=== PATIENT | female | born 1990 | race Caucasian/White ===

== ENCOUNTER 2017-05-19 09:43 | Emergency (ER) | payer BC, OTHER ==
[~2017-05-19] VITALS: Ht 154.9 cm; Wt 59.0 kg
--- OUTSIDE RECORDS SUMMARY | ~2017-05-19 | XMS ---
Demographics + + + | Address | [address] | | | [address] | | | [place] [address] | + + + | Preferred Language | Unknown | + + + | Marital Status | Unknown | + + + | Yazidism Affiliation | Unknown | + + + | Race | Unknown | + + + | Ethnic Group | Unknown | + + + Author + + + | Author | [facility] | + + + | Organization | [facility] | + + + | Address | [address] | | | [place] [address] | + + + | Phone | | + + + Care Team Providers + + + + | Care Pain Management Physician Name | Role | Phone | + + + + Unavailable | Unavailable | + + + + PROBLEMS +---------+ + + +--------+ + + | Type | Condition | ICD9-CM | [id number] | Onset | Condition | SNOMED | | | | Code | Code | Dates | Status | Code | +---------+ + + +--------+ + + | Problem | Panic | 300.01 | | | Active | [id number] | | | attacks | | | | | | +---------+ + + +--------+ + + | Problem | Torticolli | 723.5 | | | Active | [id number] | | | s, acute | | | | | | +---------+ + + +--------+ + + ALLERGIES Unknown Allergies SOCIAL HISTORY No smoking Hx information available PLAN OF CARE + +---------+ | Activity | Details | + +---------+ +---+ | | +---+ + + + | Pending Test | Hepatitis C Virus Genotype | + + + | Pending Test | Hepatitis C RNA and Quant (R-PCR) | + + + | | ,Reason: | + + + VITAL SIGNS MEDICATIONS Unknown Medications RESULTS No Results PROCEDURES No Known procedures IMMUNIZATIONS No Known Immunizations"
--- OUTSIDE RECORDS SUMMARY | ~2017-05-19 | XMS ---
Demographics + + + | Address | [address] | | | [address] | | | [place] [address] | + + + | Preferred Language | Unknown | + + + | Marital Status | Unknown | + + + | Episcopal Affiliation | Unknown | + + + | Race | Unknown | + + + | Ethnic Group | Unknown | + + + Author + + + | Author | [facility] | + + + | Organization | [facility] | + + + | Address | [address] | | | [place] [address] | + + + | Phone | [phone] | + + + Care Team Providers + + + + | Care Gear Coding Machine Operator Name | Role | Phone | + + + + Unavailable | Unavailable | + + + + PROBLEMS +---------+ + + +--------+ + + | Type | Condition | ICD9-CM | [id number] | Onset | Condition | SNOMED | | | | Code | Code | Dates | Status | Code | +---------+ + + +--------+ + + | Problem | Panic | 300.01 | | | Active | [id number] | | | attacks | | | | | | +---------+ + + +--------+ + + | Problem | Torticolli | 723.5 | | | Active | [id number] | | | s, acute | | | | | | +---------+ + + +--------+ + + ALLERGIES + + + + +--------+ | Substance | Reaction | Event Type | Date | Status | + + + + +--------+ | seasonal | Unknown | Non Drug | Aug, | Active | | | | Allergy | | | + + + + +--------+ SOCIAL HISTORY No smoking Hx information available PLAN OF CARE + +---------+ | Activity | Details | + +---------+ +---+ | | +---+ + + + | Follow Up | prn, 1 Year Reason:null | + + + VITAL SIGNS + + + + | Height | 61 in | 2016-09-04 | + + + + | Weight | 126.5 lbs | 2016-09-04 | + + + + | BMI | 23.90 kg/m2 | 2016-09-04 | + + + + | Heart Rate | 75 /min | 2016-09-04 | + + + + | Blood pressure systolic | 112 mm Hg | 2016-09-04 | + + + + | Blood pressure diastolic | 66 mm Hg | 2016-09-04 | + + + + MEDICATIONS + + + + +--------+ + +--------+ | Medicati | Instruct | Dosage | Frequenc | Start | End Date | Duration | Status | | on | ions | | y | Date | | | | + + + + +--------+ + +--------+ | Chlor-Ta | Orally | 1 tablet | 24h | | | | Active | | blets | daily | as | | | | | | | | | needed | | | | | | + + + + +--------+ + +--------+ | Lamotrig | Orally | 1 | 12h | | | | Active | | ine 150 | bid | tablets | | | | | | | MG | | | | | | | | + + + + +--------+ + +--------+ | Suboxone | orally | 2.5 | 24h | | | | Active | | 20 mg | Once a | tab(s) | | | | | | | | day | | | | | | | + + + + +--------+ + +--------+ | Ortho-Cy | Orally | 1 tablet | 24h | | | | Active | | clen | Once a | | | | | | | | (28) | day | | | | | | | | 0.25-35 | | | | | | | | | MG-MCG | | | | | | | | + + + + +--------+ + +--------+ | Benadryl | Orally | 1 tablet | 8h | | | | Active | | Allergy | every 8 | as | | | | | | | 25 MG | hrs | needed | | | | | | + + + + +--------+ + +--------+ RESULTS No Results PROCEDURES + + + + + | Procedure | Date Ordered | Related Diagnosis | Body Site | + + + + + | Est Level III | September 04, 2016 | | | | Intermediate | | | | + + + + + | DSCHRG MED/CURRENT | September 04, 2016 | | | | MED MERGE | | | | + + + + + | DOC MEDS VERIFIED | September 04, 2016 | | | | W/PT OR RE | | | | + + + + + IMMUNIZATIONS No Known Immunizations"
--- OUTSIDE RECORDS SUMMARY | ~2017-05-19 | XMS ---
Demographics + + + | Address | [address] | | | [address] | | | [place] [address] | + + + | Preferred Language | Unknown | + + + | Marital Status | Unknown | + + + | Latter-Day Affiliation | Unknown | + + + | Race | Unknown | + + + | Ethnic Group | Unknown | + + + Author + + + | Author | [facility] | + + + | Organization | [facility] | + + + | Address | [address] | | | [place] [address] | + + + | Phone | | + + + Care Team Providers + + + + | Care Groundhand Name | Role | Phone | + + + + Unavailable | Unavailable | + + + + PROBLEMS + + + + + + + + | Type | Condition | ICD9-CM | [id number] | Onset | Condition | SNOMED | | | | Code | Code | Dates | Status | Code | + + + + + + + + | Problem | Panic | 300.01 | | | Active | [id number] | | | attacks | | | | | | + + + + + + + + | Problem | Torticolli | 723.5 | | | Active | [id number] | | | s, acute | | | | | | + + + + + + + + | Assessment | HCV | R76.8 | | 14 August, | Active | [id number] | | | antibody | | | 2017 | | | | | positive | | | | | | + + + + + + + + | Assessment | 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 | Unknown | Non Drug | July, | Unknown | | | | Allergy | | | + + + + +---------+ SOCIAL HISTORY No smoking Hx information available PLAN OF CARE + +---------+ | Activity | Details | + +---------+ +---+ | | +---+ + + + | Pending Test | HCV RNA, PCR, Ql (Quant Rflx) | + + + | Pending Test | HCV Genotyping Non Reflex | + + + | Pending Test | Strep Gp A Rapid (IH) | + + + | | prn,Reason: | + + + VITAL SIGNS + + + + | Height | 61 in | 2016-08-14 | + + + + | Weight | 124.5 lbs | 2016-08-14 | + + + + | BMI | 23.52 kg/m2 | 2016-08-14 | + + + + | Temperature | 98.5 degrees Fahrenheit | 2016-08-14 | + + + + | Heart Rate | 83 /min | 2016-08-14 | + + + + | Blood pressure systolic | 122 mm Hg | 2016-08-14 | + + + + | Blood pressure diastolic | 63 mm Hg | 2016-08-14 | + + + + MEDICATIONS + [...] | + + + + + | STREP A ASSAY | August 14, 2016 | | | | W/OPTIC | | | | + + + + + | Est Level III | August 14, 2016 | | | | Intermediate | | | | + + + + + IMMUNIZATIONS No Known Immunizations"
--- OUTSIDE RECORDS SUMMARY | ~2017-05-19 | XMS ---
Demographics + + + | Address | [address] | | | [address] | | | [place] [address] | + + + | Preferred Language | Unknown | + + + | Marital Status | Unknown | + + + | Advent Affiliation | Unknown | + + + | Race | Unknown | + + + | Ethnic Group | Unknown | + + + Author + + + | Author | [facility] | + + + | Organization | [facility] | + + + | Address | [address] | | | [place] [address] | + + + | Phone | | + + + Care Team Providers + + + + | Care Crimper Operator Name | Role | Phone | + + + + Unavailable | Unavailable | + + + + PROBLEMS +---------+ + + +--------+ + + | Type | Condition | ICD9-CM | YOR27-GS | Onset | Condition | SNOMED | | | | Code | Code | Dates | Status | Code | +---------+ + + +--------+ + + | Problem | Panic | 300.01 | | | Active | [id number] | | | attacks | | | | | | +---------+ + + +--------+ + + | Problem | Torticolli | 723.5 | | | Active | [id number] | | | s, acute | | | | | | +---------+ + + +--------+ + + ALLERGIES Unknown Allergies SOCIAL HISTORY No smoking Hx information available PLAN OF CARE VITAL SIGNS MEDICATIONS Unknown Medications RESULTS No Results PROCEDURES No Known procedures IMMUNIZATIONS No Known Immunizations"
--- OUTSIDE RECORDS SUMMARY | ~2017-05-19 | XMS ---
Demographics + + + | Address | [address] | | | [address] | | | [place] [address] | + + + | Preferred Language | Unknown | + + + | Marital Status | Unknown | + + + | Sikhism Affiliation | Unknown | + + + | Race | Unknown | + + + | Ethnic Group | Unknown | + + + Author + + + | Author | [facility] | + + + | Organization | [facility] | + + + | Address | [address] | | | [place] [address] | + + + | Phone | | + + + Care Team Providers + + + + | Care Software Writer Name | Role | Phone | + + + + Unavailable | Unavailable | + + + + PROBLEMS + + + + + + + + | Type | Condition | ICD9-CM | RSR76-JR | Onset | Condition | SNOMED | | | | Code | Code | Dates | Status | Code | + + + + + + + + | Assessment | Encounter | Z13.89 | | 17 Jun, | Active | [id number] | | | for | | | 2017 | | | | | screening | | | | | | | | for other | | | | | | | | disorder | | | | | | + + + + + + + + | Problem | Panic | 300.01 | | | Active | [id number] | | | attacks | | | | | | + + + + + + + + | Problem | Torticolli | 723.5 | | | Active | 87819339 | | | s, acute | | | | | | + + + + + + + + | Assessment | Cervical | Z12.4 | | 17 Apr, | Active | [id number] | | | cancer | | | 2017 | | | | | screening | | | | | | + + + + + + + + | Assessment | 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 | Unknown | Non Drug | Jun, | Unknown | | | | Allergy | | | + + + + +---------+ SOCIAL HISTORY No smoking Hx information available PLAN OF CARE + +---------+ | Activity | Details | + +---------+ +---+ | | +---+ + + + | Pending Test | Comp. Metabolic Panel (14) | + + + | Pending Test | TSH, 3rd Generation | + + + | Pending Test | Hepatitis C Virus Antibody | + + + | Pending Test | CBC | + + + | | prn,Reason: | + + + VITAL SIGNS + + + + | Height | 61 in | 2016-07-07 | + + + + | Weight | 121.6 lbs | 2016-07-07 | + + + + | BMI | 22.97 kg/m2 | 2016-07-07 | + + + + | Heart Rate | 65 /min | 2016-07-07 | + + + + | Blood pressure systolic | 119 mm Hg | 2016-07-07 | + + + + | Blood pressure diastolic | 69 mm Hg | 2016-07-07 | + + + + MEDICATIONS + + +---------+ +--------+ + +--------+ | Medicati | Instruct | Dosage | Frequenc | Start | End Date | Duration | Status | | on | ions | | y | Date | | | | + + +---------+ +--------+ + +--------+ | Suboxone | orally | 2.5 | 24h | | | | Active | | 20 mg | Once a | tab(s) | | | | | | | | day | | | | | | | + + +---------+ +--------+ + +--------+ | Lamotrig | Orally | 1 | | | | | Active | | ine 75 | one time | tablets | | | | | | | mg | daily | | | | | | | | | in am | | | | | | | + + +---------+ +--------+ + +--------+ RESULTS + +--------+ + + | Name | Result | Date | Reference Range | + +--------+ + + | HIV screen | | 2016-07-30 | | + +--------+ + + | result | | | | + +--------+ + + PROCEDURES + + + + + | Procedure | Date Ordered | Related Diagnosis | Body Site | + + + + + | PRODUCT MARKETING DIRECTOR Level III | July 07, 2016 | | | | Intermediate | | | | + + + + + IMMUNIZATIONS No Known Immunizations"
--- OUTSIDE RECORDS SUMMARY | ~2017-05-19 | XMS ---
Demographics + + + | Address | [address] | | | [address] | | | [place] [address] | + + + | Preferred Language | Unknown | + + + | Marital Status | Unknown | + + + | Anglican Affiliation | Unknown | + + + | Race | Unknown | + + + | Ethnic Group | Unknown | + + + Author + + + | Author | [facility] | + + + | Organization | [facility] | + + + | Address | [address] | | | [place] [address] | + + + | Phone | | + + + Care Team Providers + + + + | Care Auto Body Worker Name | Role | Phone | + + + + Unavailable | Unavailable | + + + + PROBLEMS +---------+ + + +--------+ + + | Type | Condition | ICD9-CM | OME53-FW | Onset | Condition | SNOMED | | | | Code | Code | Dates | Status | Code | +---------+ + + +--------+ + + | Problem | Panic | 300.01 | | | Active | [id number] | | | attacks | | | | | | +---------+ + + +--------+ + + | Problem | Torticolli | 723.5 | | | Active | 65631294 | | | s, acute | | | | | | +---------+ + + +--------+ + + ALLERGIES Unknown Allergies SOCIAL HISTORY No smoking Hx information available PLAN OF CARE VITAL SIGNS MEDICATIONS Unknown Medications RESULTS No Results PROCEDURES No Known procedures IMMUNIZATIONS No Known Immunizations"
--- OUTSIDE RECORDS SUMMARY | ~2017-05-19 | XMS ---
Demographics + + + | Address | [address] | | | [address] | | | [place] [address] | + + + | Preferred Language | Unknown | + + + | Marital Status | Unknown | + + + | Faith Affiliation | Unknown | + + + | Race | Unknown | + + + | Ethnic Group | Unknown | + + + Author + + + | Author | [facility] | + + + | Organization | [facility] | + + + | Address | [address] | | | [place] [address] | + + + | Phone | | + + + Care Team Providers + + + + | Care Dam Operator Name | Role | Phone | + + + + Unavailable | Unavailable | + + + + PROBLEMS +---------+ + + +--------+ + + | Type | Condition | ICD9-CM | LJV41-HC | Onset | Condition | SNOMED | | | | Code | Code | Dates | Status | Code | +---------+ + + +--------+ + + | Problem | Panic | 300.01 | | | Active | [id number] | | | attacks | | | | | | +---------+ + + +--------+ + + | Problem | Torticolli | 723.5 | | | Active | 63683246 | | | s, acute | | | | | | +---------+ + + +--------+ + + ALLERGIES Unknown Allergies SOCIAL HISTORY No smoking Hx information available PLAN OF CARE VITAL SIGNS MEDICATIONS Unknown Medications RESULTS No Results PROCEDURES No Known procedures IMMUNIZATIONS No Known Immunizations"
--- OUTSIDE RECORDS SUMMARY | ~2017-05-19 | XMS ---
Demographics + + + | Address | [address] | | | [address] | | | [place] [address] | + + + | Preferred Language | Unknown | + + + | Marital Status | Unknown | + + + | Mandaeism Affiliation | Unknown | + + + | Race | Unknown | + + + | Ethnic Group | Unknown | + + + Author + + + | Author | [facility] | + + + | Organization | [facility] | + + + | Address | [address] | | | [place] [address] | + + + | Phone | [phone] EXT [phone] | + + + Care Team Providers + + + + | Care Distribution Engineering Technologist Name | Role | Phone | + + + + Unavailable | Unavailable | + + + + PROBLEMS +---------+ + + +--------+ + + | Type | Condition | ICD9-CM | [id number] | Onset | Condition | SNOMED | | | | Code | Code | Dates | Status | Code | +---------+ + + +--------+ + + | Problem | Panic | 300.01 | | | Active | [id number] | | | attacks | | | | | | +---------+ + + +--------+ + + | Problem | Torticolli | 723.5 | | | Active | 41353216 | | | s, acute | | | | | | +---------+ + + +--------+ + + ALLERGIES Unknown Allergies SOCIAL HISTORY No smoking Hx information available PLAN OF CARE VITAL SIGNS MEDICATIONS Unknown Medications RESULTS No Results PROCEDURES No Known procedures IMMUNIZATIONS No Known Immunizations"
--- OUTSIDE RECORDS SUMMARY | ~2017-05-19 | XMS ---
Demographics + + + | Address | [address] | | | [address] | | | [place] [address] | + + + | Preferred Language | Unknown | + + + | Marital Status | Unknown | + + + | Catholic Affiliation | Unknown | + + + | Race | Unknown | + + + | Ethnic Group | Unknown | + + + Author + + + | Author | [facility] | + + + | Organization | [facility] | + + + | Address | [address] | | | [place] [address] | + + + | Phone | | + + + Care Team Providers + + + + | Care Echo Vasc Tech Name | Role | Phone | + + + + Unavailable | Unavailable | + + + + PROBLEMS +---------+ + + +--------+ + + | Type | Condition | ICD9-CM | QIJ46-JN | Onset | Condition | SNOMED | | | | Code | Code | Dates | Status | Code | +---------+ + + +--------+ + + | Problem | Panic | 300.01 | | | Active | 730827460 | | | attacks | | | | | | +---------+ + + +--------+ + + | Problem | Torticolli | 723.5 | | | Active | 74256049 | | | s, acute | | | | | | +---------+ + + +--------+ + + ALLERGIES Unknown Allergies SOCIAL HISTORY No smoking Hx information available PLAN OF CARE VITAL SIGNS MEDICATIONS Unknown Medications RESULTS No Results PROCEDURES No Known procedures IMMUNIZATIONS No Known Immunizations"
--- OUTSIDE RECORDS SUMMARY | ~2017-05-19 | XMS ---
Demographics + + + | Address | [address] | | | [address] | | | [place] [address] | + + + | Preferred Language | Unknown | + + + | Marital Status | Unknown | + + + | Jewish Affiliation | Unknown | + + + | Race | Unknown | + + + | Ethnic Group | Unknown | + + + Author + + + | Author | [facility] | + + + | Organization | [facility] | + + + | Address | [address] | | | [place] [address] | + + + | Phone | | + + + Care Team Providers + + + + | Care Proof Operator Name | Role | Phone | + + + + Unavailable | Unavailable | + + + + PROBLEMS + + + + + + + + | Type | Condition | ICD9-CM | FPU07-WO | Onset | Condition | SNOMED | | | | Code | Code | Dates | Status | Code | + + + + + + + + | Assessment | Encounter | Z13.89 | | 17 Jun, | Active | [id number] | | | for | | | 2017 | | | | | screening | | | | | | | | for other | | | | | | | | disorder | | | | | | + + + + + + + + | Problem | Panic | 300.01 | | | Active | 855848116 | | | attacks | | | | | | + + + + + + + + | Problem | Torticolli | 723.5 | | | Active | 06931879 | | | s, acute | | | | | | + + + + + + + + | Assessment | Cervical | Z12.4 | | 17 Apr, | Active | [id number] | | | cancer | | | 2017 | | | | | screening | | | | | | + + + + + + + + | Assessment | Uncomplica | F11.20 | | 17 Jun, | Active | [id number] | | | jignesh opioid | | | 2016 | | | | | | | | | | | | | dependence | | | | | | + + + + + + + + | Assessment | Encounter | Z76.89 | | 17 Jun, | Active | [id number] | | | to | | | 2016 | | | | | establish | | | | | | | | care | | | | | | + + + + + + + + | Assessment | History of | Z87.898 | | 17 Jun, | Active | [id number] | | | drug | | | [...] + + + | Pending Test | HIV screen | + + + | Pending Test [...] + + +---------+ +--------+ + +--------+ RESULTS No Results PROCEDURES + + + + + | Procedure | Date Ordered | Related Diagnosis | Body Site | + + + + + | TEST ADMINISTRATOR Level III | July 07, 2016 | | | | Intermediate | | | | + + + + + IMMUNIZATIONS No Known Immunizations"
--- OUTSIDE RECORDS SUMMARY | ~2017-05-19 | XMS ---
Demographics + + + | Address | [address] | | | [address] | | | [place] [address] | + + + | Preferred Language | Unknown | + + + | Marital Status | Unknown | + + + | Adventism Affiliation | Unknown | + + + | Race | Unknown | + + + | Ethnic Group | Unknown | + + + Author + + + | Author | [facility] | + + + | Organization | [facility] | + + + | Address | [address] | | | [place] [address] | + + + | Phone | [phone] [phone] | + + + Care Team Providers + + + + | Care Physical Fitness Trainer Name | Role | Phone | + + + + Unavailable | Unavailable | + + + + PROBLEMS +---------+ + + +--------+ + + | Type | Condition | ICD9-CM | FRX27-HE | Onset | Condition | SNOMED | | | | Code | Code | Dates | Status | Code | +---------+ + + +--------+ + + | Problem | Panic | 300.01 | | | Active | [id number] | | | attacks | | | | | | +---------+ + + +--------+ + + | Problem | Torticolli | 723.5 | | | Active | 86821871 | | | s, acute | | [...] 1 Year Reason:null | + + + | Pending Test | Pap Lb, rfx HPV ASCU | + + + VITAL SIGNS + + + + | Height | 61 in | 2016-08-28 | + + + + | Weight | 125 lbs | 2016-08-28 | + + + + | BMI | 23.62 kg/m2 | 2016-08-28 | + + + + | Heart Rate | 91 /min | 2016-08-28 | + + + + | Blood pressure systolic | 115 mm Hg | 2016-08-28 | + + + + | Blood pressure diastolic | 64 mm Hg | 2016-08-28 | + + + + MEDICATIONS + + + + +--------+ + +--------+ | Medicati | Instruct | Dosage | Frequenc | Start | End Date | Duration | Status | | on | ions | | y | Date | | | | + + + + +--------+ + +--------+ | Ortho-Cy | Orally | 1 tablet | 24h | | | 28 | Active | | clen | Once a | | | | | day(s) | | | (28) | day | [...] | + + + + + | SPECIMEN HANDLING | August 28, 2016 | | | + + + + + | Preventive Est Ages | August 28, 2016 | | | | 18-39 | | | | + + + + + IMMUNIZATIONS No Known Immunizations"
[~2017-05-19 09:43] MED LIST: AMOXICILLIN500 MG PO; ATIVAN1 MG PO; BACTRIM DS TAB1 EACH PO; BUPRENORPHINE HC8 MG SL; CEPHALEXIN500 MG PO; CYCLOBENZAPRINE10 MG PO; HYDROCODON-ACE1 EAC8 PO; IBUPROFEN200 M1 PO; IBUPROFEN600 MG PO; KEFLEX500 MG PO; NAPROSYN500 MG PO; NON-ASPIRIN325 MG PO; NORCO 5-325 TA1 EACH PO; PERCOCET 5-3251 EACH PO; PRENATAL COMPL1 EACH PO; TYLENOL EXTRA500 MG PO; ULTRAM50 MG PO; VICODIN 5-3001 EACH PO; WELLBUTRIN XL150 MG PO; ZOFRAN ODT4 MG SL; ZOLOFT PO
[2017-05-19] MEDS ORDERED: ZITHROMAX250 MG PO (10:03)
[2017-05-19] MEDS ORDERED: PREVIFEM1 EACH PO (10:07)
[2017-05-19] MEDS ORDERED: LAMOTRIGINE150 MG PO (10:07)
== END 2017-05-19 10:13 | disposition home or self-care (01) ==
LOC: ED 09:43
DX: J06.9 Acute upper respiratory infection, unspecified (principal); K59.09 Other constipation; F17.200 Nicotine dependence, unspecified, uncomplicated; Z79.899 Other long term (current) drug therapy
CPT/HCPCS: 99283

== ENCOUNTER 2017-12-03 04:43 | Emergency (ER) | payer OTHER ==
[~2017-12-03] VITALS: Ht 154.9 cm; Wt 59.0 kg
[~2017-12-03 04:43] MED LIST changes: +LAMOTRIGINE150 MG PO; +PREVIFEM1 EACH PO; +ZITHROMAX250 MG PO
[2017-12-03] MEDS ORDERED: NAPROXEN500 MG PO (06:49)
--- NOTE | 2017-12-03 21:37 | EKG ---
[facility] [address] [facility] [place], [place] [address] Signed Normal sinus rhythm Normal ECG No previous ECGs available Confirmed by NICKOLAS OLIVER MD ([id number]) on 12/03/2017 9:36:48 PM Electronically Signed By: NICKOLAS OLIVER MD 12/03/17 2137 PATIENT NAME: DHIRAJ DELATORRE Electrocardiogram DATE OF : 88 PHYSICIAN: NICKOLAS OLIVER MD REPORT #: [id number] REPORT IS CONFIDENTIAL AND NOT TO BE RELEASED WITHOUT AUTHORIZATION
== END 2017-12-03 07:05 | disposition home or self-care (01) ==
LOC: ED 04:43
DX: R07.2 Precordial pain (principal); F17.200 Nicotine dependence, unspecified, uncomplicated; Z79.899 Other long term (current) drug therapy
CPT/HCPCS: 36415; 71046; 80053; 84484; 85025; 85379; 96372; 99285; J1885

== ENCOUNTER 2019-11-12 13:32 | Emergency (ER) | payer OTHER ==
[~2019-11-12] VITALS: Ht 154.9 cm; Wt 54.4 kg
[~2019-11-12 13:32] MED LIST changes: +NAPROXEN500 MG PO
--- OUTSIDE RECORDS SUMMARY | 2019-11-12 13:36 | XMS ---
PreManage Notification: DHIRAJ DELATORRE Security Investigations Manager Events No recent Security Events currently on file [facility] There are no care providers on record at this time. Monica has no Care Guidelines for this patient. Jd VISIT COUNT (12 MO.) 1 [facility] [place] TOTAL 1 NOTE: Visits indicate total known visits. ED/UCC VISIT TRACKING (12 MO.) 11/12/2019 13:33 [place] [place] TYPE: Emergency COMPLAINT: - NAUSEA, VOMITING- 8 WKS PREG. INPATIENT VISIT TRACKING (12 MO.) No inpatient visits to display in this time frame [email or web address]
[2019-11-12] MEDS ORDERED: PROMETHAZINE12.5 M1 PO (14:27)
[2019-11-12] MEDS ORDERED: PRENATA CHEWAB1 EACH PO (14:28)
[2019-11-12] MEDS ORDERED: REGLAN10 MG PO (16:50)
== END 2019-11-12 17:04 | disposition home or self-care (01) ==
LOC: ED 13:32
DX: O21.0 Mild hyperemesis gravidarum (principal); O99.331 Smoking (tobacco) complicating pregnancy, first trimester; O99.340 Other mental disorders complicating pregnancy, unspecified trimester; F41.9 Anxiety disorder, unspecified; F17.200 Nicotine dependence, unspecified, uncomplicated; Z3A.08 8 weeks gestation of pregnancy; Z79.899 Other long term (current) drug therapy
CPT/HCPCS: 80053; 81001; 85025; 96361; 96374; 99284-25; J2765; J7030

== ENCOUNTER 2020-01-22 13:20 | Emergency (ER) | payer OTHER ==
[~2020-01-22] VITALS: Ht 154.9 cm; Wt 56.8 kg
[~2020-01-22 13:20] MED LIST changes: +PRENATA CHEWAB1 EACH PO; +PROMETHAZINE12.5 M1 PO; +REGLAN10 MG PO
--- OUTSIDE RECORDS SUMMARY | 2020-01-22 13:30 | XMS ---
PreManage Notification: DHIRAJ DELATORRE Security Electrician Telephone Events No recent Security Events currently on file CRITERIA MET - [facility] CARE PROVIDERS ALLISON HOLDEN [facility] 11/14/2019-Current PHONE: Unknown Monica has no Care Guidelines for this patient. Care History Medical/Surgical 11/14/2019 [facility] - PATIENT HAS AN OBGYN APT WITH DR HOLDEN ON 11/15/19. [facility] VISIT COUNT (12 MO.) 2 [facility] TOTAL 2 NOTE: Visits indicate total known visits. ED/UCC VISIT TRACKING (12 MO.) 01/22/2020 13:20 [facility] [place] TYPE: Emergency COMPLAINT: - POSSIBLE UTI 11/12/2019 13:33 [facility] [place] TYPE: Emergency COMPLAINT: - NAUSEA, VOMITING- 8 WKS PREG. DIAGNOSES: - Vomiting of , unspecified - Anxiety disorder, unspecified - Other mental disorders complicating , unspecified trimester - 8 weeks gestation of - Nicotine dependence, unspecified, uncomplicated - Other prison (current) drug therapy - Mild hyperemesis gravidarum - Smoking (tobacco) complicating , first trimester INPATIENT VISIT TRACKING (12 MO.) No inpatient visits to display in this time frame [email or web address]
[2020-01-22] MEDS ORDERED: MACROBID 100 M100 MG PO (13:59)
== END 2020-01-22 14:20 | disposition home or self-care (01) ==
LOC: ED 13:20
DX: O23.42 Unspecified infection of urinary tract in pregnancy, second trimester (principal); Z3A.19 19 weeks gestation of pregnancy; O99.342 Other mental disorders complicating pregnancy, second trimester; F41.9 Anxiety disorder, unspecified; F32.9 Major depressive disorder, single episode, unspecified; O99.332 Smoking (tobacco) complicating pregnancy, second trimester; F17.200 Nicotine dependence, unspecified, uncomplicated; Z79.899 Other long term (current) drug therapy
CPT/HCPCS: 81001; 99283

== ENCOUNTER 2020-06-20 06:13 | Inpatient (IN) | payer OTHER ==
[~2020-06-20] VITALS: Ht 154.9 cm; Wt 66.7 kg
[~2020-06-20 06:13] MED LIST changes: +MACROBID 100 M100 MG PO
--- NOTE | 2020-06-20 09:33 | PR ---
[facility] [address] [facility] [place] [address] Signed Progress Notes IP Datetime Report Generated by CPN: 06/20/2020 09:33 PROGRESS NOTES: [id number] Plan: Continue Present Management; Anticipate Vaginal Delivery VITAL SIGNS: [id number] Vital Signs: Reviewed; Within Normal Limits EXAM: [id number] Contractions: irregular MEMBRANES: [id number] Membranes Status: Intact Comments: FHR much better after IV bolus. Will plan on AROM about 3 hours after PCN dose for GBS FETUS A: [id number] FHR Baseline: 120 Variability: Moderate 6-25bpm Presentation: Vertex FETUS B: [id number] Signing Physician: Allison Holden MD Copies: ~ *Electronically Signed* 06/20/20 0933 ALLISON HOLDEN MD PATIENT NAME: DHIRAJ DELATORRE PROGRESS NOTE DATE OF : 88 PHYSICIAN: ALLISON HOLDEN MD RPT #: [id number] REPORT IS CONFIDENTIAL AND NOT TO BE RELEASED WITHOUT AUTHORIZATION
--- NOTE | 2020-06-20 10:58 | PR ---
[facility] [address] [facility] [place] [address] Signed Progress Notes IP Datetime Report Generated by CPN: 06/20/2020 10:58 PROGRESS NOTES: [id number] Impression: Normal Progression of Labor Procedures: Artificial ROM Plan: Anticipate Vaginal Delivery VITAL SIGNS: [id number] Vital Signs: Reviewed; Within Normal Limits EXAM: [id number] Dilatation: 4.0 Effacement: 50 Station: -3 Contractions: irregular MEMBRANES: [id number] Membranes Status: Ruptured Comments: Would like Epidural when having contractions - ordered. FETUS A: [id number] FHR Baseline: 120 Variability: Moderate 6-25bpm Presentation: Vertex FETUS B: [id number] Signing Physician: Allison Holden MD Copies: ~ *Electronically Signed* 06/20/20 1058 ALLISON HOLDEN MD PATIENT NAME: DHIRAJ DELATORRE PROGRESS NOTE DATE OF : 88 PHYSICIAN: ALLISON HOLDEN MD RPT #: [id number] REPORT IS CONFIDENTIAL AND NOT TO BE RELEASED WITHOUT AUTHORIZATION
--- NOTE | 2020-06-20 17:15 | PR ---
[facility] [address] [facility] [place], [place] [address] Signed Progress Notes IP Datetime Report Generated by CPN: 06/20/2020 17:15 PROGRESS NOTES: [id number] Impression: Normal Progression of Labor Procedures: Artificial ROM Plan: Continue Present Management; Anticipate Vaginal Delivery VITAL SIGNS: [id number] Vital Signs: Reviewed; Within Normal Limits EXAM: [id number] Dilatation: 8.0 Effacement: 90 Station: -1 Contractions: irregular MEMBRANES: [id number] Membranes Status: Ruptured Comments: Comfortable with Epidural. Will continue to watch closely. Hopefully will be delivering soon. FETUS A: [id number] FHR Baseline: 120 Variability: Moderate 6-25bpm Presentation: Vertex FETUS B: [id number] Signing Physician: Allison Holden MD Copies: ~ *Electronically Signed* 06/20/20 1715 ALLISON HOLDEN MD PATIENT NAME: DHIRAJ DELATORRE PROGRESS NOTE DATE OF : 88 PHYSICIAN: ALLISON HOLDEN MD RPT #: [id number] REPORT IS CONFIDENTIAL AND NOT TO BE RELEASED WITHOUT AUTHORIZATION
--- NOTE | 2020-06-20 19:16 | PR ---
[facility] [address] [place] [address] Signed Progress Notes IP Datetime Report Generated by CPN: 06/20/2020 19:16 PROGRESS NOTES: [id number] Impression: Normal Progression of Labor Other Impressions: Slow progression Procedures: Artificial ROM Plan: Continue Present Management VITAL SIGNS: [id number] Vital Signs: Reviewed; Within Normal Limits EXAM: [id number] Dilatation: 9.5 Effacement: 90 Station: 0 Contractions: irregular MEMBRANES: [id number] Membranes Status: Ruptured Comments: Slow progress, but seems to be posterior. Will try turning to far side to be able to get rest of cervix out of the way. May need Pitocin, but since many contractions lasting so long, will wait a little longer. FETUS A: [id number] FHR Baseline: 120 Variability: Moderate 6-25bpm Presentation: Vertex FETUS B: [id number] Signing Physician: Allison Holden MD Copies: ~ *Electronically Signed* 06/20/201915 ALLISON HOLDEN MD PATIENT NAME: DHIRAJ DELATORRE PROGRESS NOTE DATE OF : 88 PHYSICIAN: ALLISON HOLDEN MD RPT #: [id number] REPORT IS CONFIDENTIAL AND NOT TO BE RELEASED WITHOUT AUTHORIZATION
--- NOTE | 2020-06-21 09:27 | PR ---
[facility] [address] [facility] [place] [address] Signed PP Progress Notes Datetime Report Generated by CPN: 06/21/2020 09:27 SUBJECTIVE: [id number] Pain: Within Normal Limits Nausea/Vomiting: Denies Vital Signs: [id number] Vital Signs: Reviewed; Within Normal Limits Notable Details: PP Hgb/Hct = 11.3/33.3 Abdomen/Uterus: Normal Lochia: Normal Extremities: Normal IMPRESSION/PLAN/PROCEDURES: [id number] Impression: Normal Progression Plan: Continue Present Management Procedures: None Progress Notes: Doing well, without complaint except. Signing Physician: Allison Holden MD Copies: ~ *Electronically Signed* 06/21/20926 ALLISON HOLDEN MD PATIENT NAME: DHIRAJ DELATORRE PROGRESS NOTE DATE OF : 88 PHYSICIAN: ALLISON HOLDEN MD RPT #: [id number] REPORT IS CONFIDENTIAL AND NOT TO BE RELEASED WITHOUT AUTHORIZATION
--- NOTE | 2020-06-22 11:13 | PR ---
[facility] [address] [facility] [place] [address] Signed PP Progress Notes Datetime Report Generated by CPN: 06/22/2020 11:13 SUBJECTIVE: [id number] Pain: Within Normal Limits Nausea/Vomiting: Denies Vital Signs: [id number] Vital Signs: Reviewed; Within Normal Limits Notable Details: PP Hgb/Hct = 11.3/33.3 Abdomen/Uterus: Normal Lochia: Normal Extremities: Normal IMPRESSION/PLAN/PROCEDURES: [id number] Impression: Normal Progression Plan: Discharge Procedures: None Progress Notes: Doing well, without complaint, ready to go home today, but baby needs to stay, so will make "Boarder Status" Signing Physician: Allison Holden MD Copies: ~ *Electronically Signed* 06/22/20 1113 ALLISON HOLDEN MD PATIENT NAME: DHIRAJ DELATORRE PROGRESS NOTE DATE OF : 88 PHYSICIAN: ALLISON HOLDEN MD RPT #: [id number] REPORT IS CONFIDENTIAL AND NOT TO BE RELEASED WITHOUT AUTHORIZATION
== END 2020-06-22 17:00 | disposition home or self-care (01) | DRG 806 ==
LOC: FBC 06:13
PROVIDERS: ADMIT General Practice; ATTEND General Practice
PROC: 10E0XZZ Delivery of Products of Conception, External Approach (ICD-10-PCS; principal; 2020-06-20)
PROC: 0UQMXZZ Repair Vulva, External Approach (ICD-10-PCS; 2020-06-20)
PROC: 10907ZC Drainage of Amniotic Fluid, Therapeutic from Products of Conception, Via Natural or Artificial Opening (ICD-10-PCS; 2020-06-20)
PROC: 00HU33Z Insertion of Infusion Device into Spinal Canal, Percutaneous Approach (ICD-10-PCS; 2020-06-20)
PROC: 3E0R3BZ Introduction of Anesthetic Agent into Spinal Canal, Percutaneous Approach (ICD-10-PCS; 2020-06-20)
DX: O48.0 Post-term pregnancy (principal); O99.324 Drug use complicating childbirth; Z37.0 Single live birth; O99.824 Streptococcus B carrier state complicating childbirth; Z3A.40 40 weeks gestation of pregnancy; O70.0 First degree perineal laceration during delivery; F12.90 Cannabis use, unspecified, uncomplicated; F11.21 Opioid dependence, in remission; O99.334 Smoking (tobacco) complicating childbirth; F17.210 Nicotine dependence, cigarettes, uncomplicated; O99.344 Other mental disorders complicating childbirth; F31.9 Bipolar disorder, unspecified; Z86.19 Personal history of other infectious and parasitic diseases
CPT/HCPCS: 85027; A9270; J2540; J2590; J2795; J3010; J7121